=== PATIENT | male | born 1985 | race Two or more races ===

== ENCOUNTER 2018-05-08 15:42 | Emergency (ER) | payer SELFPAY ==
[~2018-05-08] VITALS: Ht 175.3 cm; Wt 129.1 kg
[2018-05-08 16:36] LABS: BASOPHILS # (AUTO) 0.03 x10^3/uL (0-0.1); BASOPHILS % (AUTO) 0 % (0-1); EOSINOPHILS # (AUTO) 0.14 x10^3/uL (0-0.4); EOSINOPHILS % (AUTO) 2 % (1-7); LYMPHOCYTES # (AUTO) 2.24 x10^3/uL (1-3.4); LYMPHOCYTES % (AUTO) 23 % (22-44); MD NO; MEAN CORPUSCULAR HEMOGLOBIN 30.4 pg (27.5-34.5); MEAN CORPUSCULAR VOLUME 89.3 fL (81-97); MEAN PLATELET VOLUME 8.3 fL (7.4-10.4); MONOCYTES # (AUTO) 0.51 x10^3/uL (0.2-0.8); MONOCYTES % (AUTO) 5 % (2-9); NEUTROPHILS # (AUTO) 6.92 x10^3/uL (1.8-6.8); NEUTROPHILS % (AUTO) 70 % (42-75); PLATELET COUNT 239 x10^3/uL (130-400); RED BLOOD COUNT 5.08 x10^6/uL (4.38-5.82); RED CELL DISTRIBUTION WIDTH 13.2 % (9.4-14.8)
[2018-05-08 16:38] LABS: INTERNATIONAL NORMALIZED RATIO 0.97 (0.93-1.1)
[2018-05-08 16:41] LABS: ALANINE AMINOTRANSFERASE 48 U/L (12-78); ALBUMIN 3.7 g/dL (3.4-5.0); ANION GAP 6 mmol/L (5-15); CALCIUM 9.9 mg/dL (8.5-10.1); CHLORIDE 108 mmol/L (98-107); CREATININE 1.11 mg/dL (0.7-1.3)
[2018-05-08 16:44] LABS: ALKALINE PHOSPHATASE 111 U/L (45-117)
[2018-05-08] MEDS ORDERED: CLINDAMYCIN PMX 600MG/50ML 50 ML IV ONE (17:00)
[2018-05-08] MEDS ORDERED: CLINDAMYCIN PMX 600MG/50ML 50 ML ONE (17:21)
[2018-05-08 19:04] VITALS: BP 150/77
== END 2018-05-08 19:08 | disposition home or self-care (01) ==
LOC: ED 19:00
DX: L03.113 Cellulitis of right upper limb (principal); L03.011 Cellulitis of right finger; Z90.49 Acquired absence of other specified parts of digestive tract
CPT/HCPCS: 36415; 80053; 83605; 84145; 85025; 85610; 85730; 87040; 96365; 96366

== ENCOUNTER 2018-05-10 08:44 | Emergency (ER) | payer SELFPAY ==
[~2018-05-10] VITALS: Ht 175.3 cm; Wt 128.9 kg
[2018-05-10 08:47] VITALS: BP 145/97
[2018-05-10] MEDS ORDERED: LIDOCAINE-MPF 1%, 2ML ONE (09:57)
[2018-05-10] MEDS ORDERED: LIDOCAINE-MPF 2% ,5ML ONE (09:58)
[2018-05-10] MEDS ORDERED: LIDOCAINE-MPF 1%, 5ML INFIL ONE (10:00)
== END 2018-05-10 10:45 | disposition home or self-care (01) ==
LOC: ED 10:21
DX: L02.511 Cutaneous abscess of right hand (principal)
CPT/HCPCS: 10060

== ENCOUNTER 2018-05-12 09:15 | Emergency (ER) | payer SELFPAY ==
[~2018-05-12] VITALS: Ht 175.3 cm; Wt 128.7 kg
[2018-05-12 09:16] VITALS: BP 155/96
== END 2018-05-12 10:22 | disposition home or self-care (01) ==
LOC: ED 10:10
DX: L03.113 Cellulitis of right upper limb (principal); L03.011 Cellulitis of right finger; R19.7 Diarrhea, unspecified; Z90.49 Acquired absence of other specified parts of digestive tract
CPT/HCPCS: 99283

== ENCOUNTER 2018-10-05 10:01 | Emergency (ER) | payer SELFPAY ==
[~2018-10-05] VITALS: Ht 175.3 cm; Wt 131.5 kg
[2018-10-05 10:58] LABS: BASOPHILS # (AUTO) 0.02 x10^3/uL (0-0.1); BASOPHILS % (AUTO) 0 % (0-1); EOSINOPHILS # (AUTO) 0.09 x10^3/uL (0-0.4); EOSINOPHILS % (AUTO) 2 % (1-7); LYMPHOCYTES # (AUTO) 1.35 x10^3/uL (1-3.4); LYMPHOCYTES % (AUTO) 24 % (22-44); MD NO; MEAN CORPUSCULAR HEMOGLOBIN 30.9 pg (27.5-34.5); MEAN CORPUSCULAR HGB CONC 34.4 g/dL (33.2-36.2); MEAN CORPUSCULAR VOLUME 89.8 fL (81-97); MEAN PLATELET VOLUME 8.2 fL (7.4-10.4); MONOCYTES # (AUTO) 0.31 x10^3/uL (0.2-0.8); MONOCYTES % (AUTO) 6 % (2-9); NEUTROPHILS # (AUTO) 3.93 x10^3/uL (1.8-6.8); NEUTROPHILS % (AUTO) 69 % (42-75); PLATELET COUNT 247 x10^3/uL (130-400); RED CELL DISTRIBUTION WIDTH 12.9 % (9.4-14.8)
[2018-10-05 11:05] LABS: MICROSCOPIC AUTO
[2018-10-05 11:09] LABS: ALBUMIN 3.9 g/dL (3.4-5.0); ANION GAP 7 mmol/L (5-15); CALCIUM 9.8 mg/dL (8.5-10.1); CHLORIDE 109 mmol/L (98-107)
[2018-10-05 11:13] LABS: ALANINE AMINOTRANSFERASE 98 U/L (12-78); ALKALINE PHOSPHATASE 97 U/L (45-117); BILIRUBIN,TOTAL 3.3 mg/dL (0.2-1.0); CREATININE 0.86 mg/dL (0.7-1.3)
[2018-10-05 11:40] VITALS: BP 159/95
[2018-10-05 11:56] LABS: CULTURE INDICATED? NO
== END 2018-10-05 13:29 | disposition home or self-care (01) ==
LOC: ED 11:17
DX: S39.012A Strain of muscle, fascia and tendon of lower back, initial encounter (principal); R11.2 Nausea with vomiting, unspecified; R30.0 Dysuria; Z87.891 Personal history of nicotine dependence; Z87.19 Personal history of other diseases of the digestive system; Z90.49 Acquired absence of other specified parts of digestive tract; X58.XXXA Exposure to other specified factors, initial encounter; Y93.89 Activity, other specified; Y92.89 Other specified places as the place of occurrence of the external cause; Y99.8 Other external cause status
CPT/HCPCS: 36415; 74176; 80053; 81001; 83690; 85025; 99285